=== PATIENT | male | born 1950 | race American Indian/Alaskan Native ===

== ENCOUNTER 2019-04-04 03:00 | Emergency (ER) | payer BC ==
[2019-04-04] MEDS ORDERED: NACL 0.9% 500 ML 500 ML IV ONE (03:27)
[2019-04-04] MEDS ORDERED: TORADOL IV ONE (03:27)
[2019-04-04] MEDS ORDERED: ZOFRAN IV ONE (03:27)
--- NOTE | 2019-04-04 04:08 | Emergency Department Report ---
ED Abdominal Pain HPI - General Chief Complaint: Abdominal Pain Stated Complaint: BACK PAIN Time Seen by Provider: 04/04/19 03:26 Source: patient Mode of arrival: Ambulatory Limitations: No Limitations - History of Present Illness Initial Comments: Patient is a 68-year-old -[place] male with history of renal stones . [facility] 3 mm calculus patient states 10 left flank pain now taking hydrocodone did not fill Toradol rx, there is no fever no chills there's intermittent nausea vomiting patient does have history of renal stones with similar symptoms patient has follow-up tomorrow. Patient is living at this time denies hematuria. MD Complaint: flank pain Onset/Timin -: month(s) Location: L flank Radiation: L flank Migration to: no migration Severity: moderate Severity scale (0 -10): 7 Quality: aching Improves With: nothing Worsens With: nothing Associated Symptoms: nausea, vomiting, dysuria - Related Data Previous Rx's Medication Instructions Recorded Last Taken Type Ketorolac [Toradol] 10 mg PO Q6H PRN #12 tablet 04/04/19 Unknown Rx Ondansetron [Zofran Odt] 4 mg PO Q8HR PRN #12 tab.rapdis 04/04/19 Unknown Rx Allergies Allergy/AdvReac Type Severity Reaction Status Date / Time crab Allergy Unknown Verified 04/04/19 03:05 ED Review of Systems ROS: Stated complaint: BACK PAIN Other details as noted in HPI Constitutional: denies: chills, fever Eyes: denies: eye pain, eye discharge, vision change ENT: denies: ear pain, throat pain Respiratory: denies: cough, shortness of breath, wheezing Cardiovascular: denies: chest pain, palpitations Endocrine: no symptoms reported Gastrointestinal: abdominal pain (left flank), nausea, vomiting. denies: diarrhea, constipation, hematemesis, melena, hematochezia Genitourinary: dysuria, frequency. denies: urgency, hematuria, discharge, testicular pain, testicular mass Musculoskeletal: denies: back pain, joint swelling, arthralgia Skin: denies: rash, lesions Neurological: denies: headache, weakness, numbness, paresthesias, confusion, ab normal gait, vertigo Psychiatric: denies: anxiety, depression Hematological/Lymphatic: denies: easy bleeding, easy bruising ED Past Medical Hx - Past Medical History Previous Medical History?: Yes Hx Hypertension: Yes Hx Diabetes: Yes (boderline) Hx Kidney Stones: Yes - Surgical History Past Surgical History?: Yes Hx Cholecystectomy: Yes Additional Surgical History: prostate - Social History Smoking Status: Never Smoker Substance Use Type: None - Medications Home Medications: Home Medications Medication Instructions Recorded Confirmed Last Taken Type Ketorolac [Toradol] 10 mg PO Q6H PRN #12 tablet 04/04/19 Unknown Rx Ondansetron [Zofran Odt] 4 mg PO Q8HR PRN #12 tab.rapdis 04/04/19 Unknown Rx ED Physical Exam - General Limitations: No Limitations ED Course Vital Signs 04/04/19 04/04/19 04:01 04:31 Respiratory 16 16 Rate ED Medical Decision Making - Lab Data Result diagrams: 04/04/19 04:01 04/04/19 04:01 Labs 04/04/19 04/04/19 04:01 04:01 WBC 8.1 RBC 4.22 Hgb 13.6 Hct 40.2 MCV 95 H MCH 32 MCHC 34 RDW 13.1 L Plt Count 124 L Sodium 139 Potassium 3.8 Chloride 100.1 Carbon Dioxide 24 Anion Gap 19 BUN 13 Creatinine 1.3 Estimated GFR > 60 BUN/Creatinine Ratio 10 Glucose 221 H Calcium 9.1 - Medical Decision Making Symptoms are relieved to 0/10 with Toradol plan write to 15 prescription for Toradol and Zofran when necessary patient will follow up with urology tomorrow as scheduled continue Flomax return to ED she symptoms worsen patient verbalizes agreement and understanding of discharge plan patient will be DC'd to home in stable condition at this time last for 30 minutes ago without dysuria or hematuria. Critical care attestation.: If time is entered above; I have spent that time in minutes in the direct care of this critically ill patient, excluding procedure time. ED Disposition Clinical Impression: Flank pain, Hx of renal calculi Disposition: DC-01 TO HOME OR SELFCARE Is pt being admited?: No Does the pt Need Aspirin: No Condition: Stable Instructions: Kidney Stones (ED), Flank Pain (ED) Prescriptions: Ketorolac [Toradol] 10 mg PO Q6H PRN #12 tablet PRN Reason: Pain Ondansetron [Zofran Odt] 4 mg PO Q8HR PRN #12 tab.rapdis PRN Reason: Nausea And Vomiting Referrals: DARBY THACKER MD [Primary Care Provider] - 3-5 Days Forms: Work/School Release Form(ED) Time of Disposition: 05:14
[2019-04-04 04:23] LABS: Hematocrit 40.2 % (35.5-45.6); Hemoglobin 13.6 gm/dl (11.8-15.2); Mean Corpuscular HGB Conc 34 % (32-34); Mean Corpuscular Volume 95 fl (84-94); Platelet Count 124 K/mm3 (140-440); Red Blood Count 4.22 M/mm3 (3.65-5.03); Red Cell Distribution Width 13.1 % (13.2-15.2)
[2019-04-04 04:43] LABS: BUN/Creatinine Ratio 10; Blood Urea Nitrogen 13 mg/dL (9-20); Calcium 9.1 mg/dL (8.4-10.2); Hemolysis Index 6
[2019-04-04 05:09] LABS: Bilirubin,Urine NEG (Negative); Blood,Urine NEG (Negative); Color,Urine Yellow (Yellow); Mucus,Urine FEW /HPF; Protein,Urine <15 mg/dL mg/dL (Negative); Urobilinogen,Urine < 2.0 mg/dL (<2.0)
[2019-04-04 06:18] VITALS: BP 134/78
== END 2019-04-04 05:25 | disposition home or self-care (01) ==
LOC: ED 03:00
DX: R10.9 Unspecified abdominal pain (principal); R11.2 Nausea with vomiting, unspecified; R30.0 Dysuria; I10 Essential (primary) hypertension; E11.9 Type 2 diabetes mellitus without complications; Z91.013 Allergy to seafood; Z87.442 Personal history of urinary calculi
CPT/HCPCS: 36415; 80048; 81001; 85027; 96361; 96374; 96375; 99283; J1885; J2405; J7040